=== PATIENT | female | born 1980 | race Caucasian/White ===

== ENCOUNTER 2020-09-06 17:36 | Inpatient (IN) | payer OTHER ==
[~2020-09-06] VITALS: Ht 157.5 cm; Wt 77.1 kg
[~2020-09-06 17:36] MED LIST: ADMELOG SO100 UNIT/1 SC; BASAGLAR K100 UNIT/1 SQ; COLACE 100MG C100 MG PO; LEVAQUIN750 MG PO; SUBOXONE 8 MG-1 EACH SL
[2020-09-06 20:31] LABS: HEMOGLOBIN 14.2 gm/dl (12.3-15.3); RED BLOOD COUNT 4.7 M/UL (4.00-5.10); WHITE BLOOD COUNT 23.6 K/UL (4.5-11.0)
[2020-09-06 20:57] LABS: BUN/CREATININE RATIO 18 (0-10)
[2020-09-06] MEDS ORDERED: LEVOTHYROXINE75 MC1 PO (22:15)
[2020-09-06] MEDS ORDERED: LYRICA150 MG PO (22:31)
[2020-09-07 04:49] LABS: HEMOGLOBIN 13.6 gm/dl (12.3-15.3); RED BLOOD COUNT 4.44 M/UL (4.00-5.10); WHITE BLOOD COUNT 18.7 K/UL (4.5-11.0)
[2020-09-07 05:13] LABS: BUN/CREATININE RATIO 20 (0-10)
[2020-09-07 08:37] LABS: BUN/CREATININE RATIO 21 (0-10)
[2020-09-07 12:39] LABS: BUN/CREATININE RATIO 22 (0-10)
[2020-09-08 02:55] LABS: HEMOGLOBIN 12.6 gm/dl (12.3-15.3); RED BLOOD COUNT 4.21 M/UL (4.00-5.10)
[2020-09-08 03:03] LABS: WHITE BLOOD COUNT 12.8 K/UL (4.5-11.0)
[2020-09-08 03:15] LABS: BUN/CREATININE RATIO 18 (0-10)
[2020-09-08 22:17] LABS: ACINETOBACTER BAUMANNII Not Detected (Negative); CANDIDA ALBICANS Not Detected (Negative); CANDIDA KRUSEI Not Detected (Negative); CANDIDA TROPICALIS Not Detected (Negative); ENTEROCOCCUS Not Detected (Negative); HAEMOPHILUS INFLUENZAE Not Detected (Negative); KLEBSIELLA OXYTOCA Not Detected (Negative); KLEBSIELLA PNEUMONIAE Not Detected (Negative); KPC-CARBAPENEM-RESISTANCE GENE Not Detected (Negative); PROTEUS Not Detected (Negative); PSEUDOMONAS AERUGINOSA Not Detected (Negative); SERRATIA MARCESANS Not Detected (Negative); STAPHYLOCOCCUS Not Detected (Negative); STAPHYLOCOCCUS AUREUS Not Detected (Negative); STREP AGALACTIAE (GROUP B) Not Detected (Negative); STREP PYOGENES (GROUP A) Not Detected (Negative); STREPTOCOCCUS Not Detected (Negative); mecA (METHICILLIN RESIST GENE Not Detected (Negative); vanA/B (VANCOMYCIN RESIST GENE Not Detected (Negative)
[2020-09-08 23:47] LABS: ESCHERICHIA COLI DETECTED (Negative)
[2020-09-09 08:08] LABS: BUN/CREATININE RATIO 15 (0-10)
[2020-09-09 08:13] LABS: RED BLOOD COUNT 3.66 M/UL (4.00-5.10)
[2020-09-10 05:26] LABS: HEMOGLOBIN 11.2 gm/dl (12.3-15.3); RED BLOOD COUNT 3.81 M/UL (4.00-5.10); WHITE BLOOD COUNT 9.4 K/UL (4.5-11.0)
[2020-09-10 05:48] LABS: BUN/CREATININE RATIO 14 (0-10)
[2020-09-11 06:15] LABS: HEMOGLOBIN 10.7 gm/dl (12.3-15.3); RED BLOOD COUNT 3.59 M/UL (4.00-5.10); WHITE BLOOD COUNT 7.4 K/UL (4.5-11.0)
[2020-09-11 06:39] LABS: BUN/CREATININE RATIO 9 (0-10)
[2020-09-12 07:01] LABS: HEMOGLOBIN 11.2 gm/dl (12.3-15.3); RED BLOOD COUNT 3.74 M/UL (4.00-5.10); WHITE BLOOD COUNT 8.1 K/UL (4.5-11.0)
[2020-09-12 07:17] LABS: BUN/CREATININE RATIO 9 (0-10)
== END 2020-09-12 19:24 | disposition home or self-care (01) | DRG 871 ==
LOC: ER1 17:36 → M/S 22:00 → CDU 22:00 → 2 EAST 22:00 → M/S 09-07 16:44
PROVIDERS: Internal Medicine; Physician Assistant; ADMIT Internal Medicine
DX: A41.51 Sepsis due to Escherichia coli [E. coli] (principal); E11.10 Type 2 diabetes mellitus with ketoacidosis without coma; N10 Acute pyelonephritis; F11.20 Opioid dependence, uncomplicated; Z16.12 Extended spectrum beta lactamase (ESBL) resistance; L02.414 Cutaneous abscess of left upper limb; L03.114 Cellulitis of left upper limb; E87.1 Hypo-osmolality and hyponatremia; E87.2 Acidosis; L02.31 Cutaneous abscess of buttock; F12.10 Cannabis abuse, uncomplicated; F19.10 Other psychoactive substance abuse, uncomplicated; I10 Essential (primary) hypertension; E78.5 Hyperlipidemia, unspecified; Z20.822 Contact with and (suspected) exposure to COVID-19; F17.210 Nicotine dependence, cigarettes, uncomplicated; R53.83 Other fatigue; E03.9 Hypothyroidism, unspecified; Z79.4 Long term (current) use of insulin; Z83.3 Family history of diabetes mellitus; Z88.0 Allergy status to penicillin
CPT/HCPCS: ECHO; 36415; 71046; 73080; 73201; 80048; 80053; 80202; 80307; 81001; 82009; 82803; 82947; 82962; 83036; 83605; 83735; 84100; 84132; 84703; 85025; 85027; 87040; 87077; 87086; 87150; 87186; 93306; 96365; 99285; G0378; J0696; J1335; J1650; J1956; J2185; J3370; J7030; J7070; Q9967; U0002; U0003

== ENCOUNTER → 2020-09-13 | Outpatient (CLI) | payer OTHER ==
[~2020-09-13] VITALS: Ht 175.3 cm; Wt 89.4 kg
[~2020-09-13] MED LIST changes: +LEVOTHYROXINE75 MC1 PO; +LYRICA150 MG PO; +ZOFRAN ODT 4 MG4 MG PO
== END ==
LOC: OPSV 11:41
DX: N39.0 Urinary tract infection, site not specified (principal)
CPT/HCPCS: 96372; J1335

== ENCOUNTER → 2020-09-14 | Outpatient (CLI) | payer OTHER ==
[~2020-09-14] VITALS: Ht 157.5 cm; Wt 80.7 kg
== END ==
LOC: OPSV 11:27
DX: N39.0 Urinary tract infection, site not specified (principal)
CPT/HCPCS: 96372; J1335

== ENCOUNTER → 2020-09-15 | Outpatient (CLI) | payer OTHER ==
[~2020-09-15] VITALS: Ht 157.5 cm; Wt 80.7 kg
== END ==
LOC: OPSV 08:00
DX: N39.0 Urinary tract infection, site not specified (principal)
CPT/HCPCS: 96372; J1335

== ENCOUNTER → 2020-09-16 | Outpatient (CLI) | payer OTHER ==
[~2020-09-16] VITALS: Ht 157.5 cm; Wt 80.7 kg
== END ==
LOC: OPSV 08:00
DX: N39.0 Urinary tract infection, site not specified (principal)
CPT/HCPCS: 96372; J1335

== ENCOUNTER → 2020-09-17 | Outpatient (CLI) | payer OTHER ==
[~2020-09-17] VITALS: Ht 157.5 cm; Wt 80.7 kg
== END ==
LOC: OPSV 11:00
DX: N39.0 Urinary tract infection, site not specified (principal)
CPT/HCPCS: 96372; J1335

== ENCOUNTER → 2020-09-18 | Outpatient (CLI) | payer OTHER ==
[~2020-09-18] VITALS: Ht 157.5 cm; Wt 80.7 kg
== END ==
LOC: OPSV 11:00
DX: N39.0 Urinary tract infection, site not specified (principal)
CPT/HCPCS: 96372; J1335

== ENCOUNTER → 2020-09-19 | Outpatient (CLI) | payer OTHER ==
[~2020-09-19] VITALS: Ht 157.5 cm; Wt 80.7 kg
== END ==
LOC: OPSV 11:00
DX: N39.0 Urinary tract infection, site not specified (principal)
CPT/HCPCS: 96372; J1335

== ENCOUNTER 2021-02-06 13:26 | Emergency (ER) | payer OTHER ==
[~2021-02-06 13:26] MED LIST changes: -ZOFRAN ODT 4 MG4 MG PO
[2021-02-06 15:12] LABS: HEMOGLOBIN 11.3 gm/dl (12.3-15.3); RED BLOOD COUNT 3.76 M/UL (4.00-5.10); WHITE BLOOD COUNT 8.1 K/UL (4.5-11.0)
[2021-02-06 15:54] LABS: BUN/CREATININE RATIO 15 (0-10)
[2021-02-06] MEDS ORDERED: ZOFRAN ODT 4 MG4 MG PO (20:51)
== END 2021-02-06 21:03 | disposition home or self-care (01) ==
LOC: ER1 13:26
PROVIDERS: Emergency Medicine
DX: R07.89 Other chest pain (principal); F41.9 Anxiety disorder, unspecified; E11.65 Type 2 diabetes mellitus with hyperglycemia; R79.89 Other specified abnormal findings of blood chemistry; F17.200 Nicotine dependence, unspecified, uncomplicated; Z20.822 Contact with and (suspected) exposure to COVID-19; N12 Tubulo-interstitial nephritis, not specified as acute or chronic; R59.1 Generalized enlarged lymph nodes
CPT/HCPCS: 0240U; 71045; 80053; 81001; 82550; 82553; 82962; 83605; 83690; 84484; 85025; 87086; 93005; 96374; 99285; J7030; Q9967

== ENCOUNTER 2021-10-16 18:32 | Inpatient (IN) | payer OTHER ==
[~2021-10-16] VITALS: Ht 165.1 cm; Wt 63.7 kg
[~2021-10-16 18:32] MED LIST changes: +BASAGLAR K100 UNIT/1 SC; -BASAGLAR K100 UNIT/1 SQ; +ZOFRAN ODT 4 MG4 MG PO
[2021-10-16 19:22] LABS: HEMOGLOBIN 13.7 gm/dl (12.3-15.3); RED BLOOD COUNT 4.52 M/UL (4.00-5.10); WHITE BLOOD COUNT 10.2 K/UL (4.5-11.0)
[2021-10-16 19:43] LABS: BUN/CREATININE RATIO 23 (0-10)
[2021-10-17 04:11] LABS: HEMOGLOBIN 13.1 gm/dl (12.3-15.3); RED BLOOD COUNT 4.33 M/UL (4.00-5.10)
[2021-10-17 04:13] LABS: WHITE BLOOD COUNT 6.1 K/UL (4.5-11.0)
[2021-10-17 04:37] LABS: BUN/CREATININE RATIO 19 (0-10)
[2021-10-17] MEDS ORDERED: GLUCAGON EMERGEN1 MG INJ (13:12)
== END 2021-10-17 15:25 | disposition left against medical advice (07) | DRG 637 ==
LOC: ER1 18:32 → CCU 20:33 → CDU 20:33 → CCU 22:45
PROVIDERS: Family Medicine; ADMIT Internal Medicine
DX: E10.649 Type 1 diabetes mellitus with hypoglycemia without coma (principal); G93.41 Metabolic encephalopathy; F11.20 Opioid dependence, uncomplicated; F17.200 Nicotine dependence, unspecified, uncomplicated; Z79.4 Long term (current) use of insulin; Z98.890 Other specified postprocedural states; Z83.3 Family history of diabetes mellitus
CPT/HCPCS: 80053; 80307; 81001; 82140; 82607; 82746; 82962; 83036; 83735; 84100; 85025; 85027; 86140; 96374; 96375; 96376; 99285; J2310; J3475; U0002